=== PATIENT | female | born 1960 | race Caucasian/White ===

== ENCOUNTER 2024-09-29 10:29 | Emergency (ER) | payer OTHER ==
[2024-09-29 10:34] VITALS: TEMP 97.8
[2024-09-29] MEDS: SODIUM CHLORIDE 0.9% 1,000 ML IV STA (10:59)
[2024-09-29] MEDS: ONDANSETRON 4 MG/2 ML VIAL IVP STA (11:00)
[2024-09-29] MEDS: KETOROLAC 15 MG/ML 1 ML VIAL IVP STA (11:01)
[2024-09-29] MEDS: MORPHINE SULFATE 4 MG/ML SYRINGE IVP STA (11:02)
--- NOTE | 2024-09-29 11:06 | ED ---
Female Urogenital HPI - General Chief complaint: Urogenital Stated complaint: abd pain Time Seen by Provider: 09/29/24 10:39 Source: patient, RN notes reviewed Mode of arrival: ambulatory Limitations: no limitations - History of Present Illness Initial comments: This is a 64-year-old female who presents to the emergency department for urinary symptoms and right flank pain. States that it started 3 to 4 days ago. 2 days ago she went to the clinic and was started on ciprofloxacin and Pyridium for a UTI. States that she initially thought she was doing better, however she then started to develop increasing pain with nausea and vomiting. She was adv ised to come here to rule out a kidney stone. Denies any history of kidney stones. - Related Data Home Medications Medication Instructions Recorded Confirmed Budesonide/Formoterol Fumarate 2 puff INHALATION RT-BID 09/29/24 09/29/24 [Symbicort 160-4.5 Mcg Inhaler] Ciprofloxacin HCl [Cipro] 500 mg PO Q12HR 09/29/24 09/29/24 Losartan [Cozaar] 25 mg PO DAILY 09/29/24 09/29/24 Phenazopyridine [Pyridium] 200 mg PO Q8H 09/29/24 09/29/24 metFORMIN HCL 500 mg PO BID 09/29/24 09/29/24 Previous Rx's Medication Instructions Recorded HYDROcodone/APAP 5-325MG [[place] 1 tab PO Q6HR PRN 3 Days #12 tab 09/29/24 5-325] Ketorolac [Toradol] 10 mg PO Q6HR PRN #15 tab 09/29/24 Ondansetron Odt [Zofran Odt] 4 mg PO Q8HR PRN #15 tab 09/29/24 Allergies Allergy/AdvReac Type Severity Reaction Status Date / Time No Known Allergies Allergy Verified 09/29/24 12:31 Review of Systems ROS Statement: Those systems with pertinent positive or pertinent negative responses have been documented in the HPI. ROS Other: All systems not noted in ROS Statement are negative. Past Medical History Past Medical History: Diabetes Mellitus, Hypertension History of Any Multi-Drug Resistant Organisms: None Reported Past Surgical History: No Surgical Hx Reported Past Psychological History: No Psychological Hx Reported Smoking Status: Never smoker Past Alcohol Use History: None Reported Past Drug Use History: None Reported General Exam Limitations: no limitations General appearance: alert, in no apparent distress Head exam: Present: atraumatic, normocephalic, normal inspection Respiratory exam: Present: normal lung sounds bilaterally. Absent: respiratory distress, wheezes, rales, rhonchi, stridor Cardiovascular Exam: Present: regular rate, normal rhythm GI/Abdominal exam: Present: soft, tenderness (RLQ), normal bowel sounds. Absent: distended, guarding, rebound, rigid Back exam: Present: CVA tenderness (R). Absent: CVA tenderness (L) Neurological exam: Present: alert, oriented X3, CN II-XII intact Psychiatric exam: Present: normal affect, normal mood Skin exam: Present: warm, dry, intact, normal color. Absent: rash Course Vital Signs 09/29/24 09/29/24 10:31 12:22 Temperature 97.8 F Pulse Rate 86 70 Respiratory 18 16 Rate Blood Pressure 198/107 151/83 O2 Sat by Pulse 99 99 Oximetry Medical Decision Making - Medical Decision Making This is a 64 year old female who presents to the emergency department for right flank pain. Was pt. sent in by a medical professional or institution? @ -No Did you speak to anyone other than the patient for history? @ -No Did you review nursing and triage notes? @ -Yes, and I agree, it is accurate with regards to the patient's symptoms. Were old charts reviewed? @ -No Differential Diagnosis? @ -Differential Flank Pain: UTI, pyelonephritis, kidney stone, musculoskeletal, pancreatitis, cholecystitis, this is not meant to be an all-inclusive list. EKG interpreted by me (3pts min.)? @ -Not obtained X-rays interpreted by me (1pt min.)? @ -Not obtained CT interpreted by me (1pt min.)? @ -CT scan of the abdomen and pelvis obtained. My interpretation identifies no ureteral calculus. U/S interpreted by me (1pt. min.)? @ -Not obtained What testing was considered but not performed? (CT, X-rays, U/S, labs)? Why? @ -None What meds were considered but not given? Why? @ -None Did you discuss the management of the patient with other professionals? @ -No Did you reconcile home meds? @ -No Was smoking cessation discussed for >3mins.? @ -No Was critical care preformed (if so, how long)? @ -No Were there social determinants of health that impacted care today? How? (Homelessness, low income, unemployed, alcoholism, drug addiction, transportation, low edu. Level, literacy, decrease access to med. care, alf, rehab)? @ -No Was there de-escalation of care discussed even if they declined? (Discuss DNR or withdrawal of care, Hospice)? @ -No What co-morbidities impacted this encounter? (DM, HTN, Smoking, COPD, CAD, Cancer, CVA, Hep., AIDS, mental health diagnosis, sleep apnea, morbid obesity)? @ -None Was patient admitted / discharged? @ -Discharged. Lab work demonstrates mild leukocytosis and is otherwise unremarkable. Urinalysis demonstrates blood and a small elevation in WBCs. Urine sent for culture. CT scan of the abdomen and pelvis demonstrates mild right hydroureteronephrosis without obstructing calculus. There is also perivesicular fat stranding. This may relate to recently passed stone, however cystitis with ascending infection is not excluded. Urinalysis not overly suggestive of infection at this time and blood work is also relatively unremarkable. Symptoms more likely related to recently passed stone. Findings reviewed with the patient. Symptoms treated in the emergency department. Prescription for Toradol, [place], and Zofran provided. Patient discharged home in stable condition and advised to follow-up with her PCP. Case discussed with ED attending Dr. Wayne. Return precautions reviewed in depth, the patient is instructed to return to the emergency department with any new, worsening, or concerning symptoms. Patient verbalized understanding. Undiagnosed new problem with uncertain prognosis? @ -None Drug Therapy requiring intensive monitoring for toxicity (Heparin, Nitro, Insulin, Cardizem)? @ -None Were any procedures done? @ -None Diagnosis/symptom? @ -UTI, hydronephrosis Acute, or Chronic, or Acute on Chronic? @ -Acute Uncomplicated (without systemic symptoms) or Complicated (systemic symptoms)? @ -Uncomplicated Side effects of treatment? @ -None Exacerbation, Progression, or Severe Exacerbation] @ -Not applicable Poses a threat to life or bodily function? @ -No - Lab Data Result diagrams: 09/29/24 10:57 09/29/24 10:57 Lab Results 09/29/24 09/29/24 09/29/24 Range/Units 10:57 10:57 10:57 WBC 10.8 H (3.8-10.6) k/uL RBC 4.83 (3.80-5.40) m/uL Hgb 14.7 (11.4-16.0) gm/dL Hct 43.2 (34.0-46.0) % MCV 89.3 (80.0-100.0) fL MCH 30.4 (25.0-35.0) pg MCHC 34.0 (31.0-37.0) g/dL RDW 12.5 (11.5-15.5) % Plt Count 194 (150-450) k/uL MPV 7.4 Neutrophils % 63 % Lymphocytes % 27 % Monocytes % 7 % Eosinophils % 1 % Basophils % 0 % Neutrophils # 6.8 (1.3-7.7) k/uL Lymphocytes # 2.9 (1.0-4.8) k/uL Monocytes # 0.7 (0-1.0) k/uL Eosinophils # 0.1 (0-0.7) k/uL Basophils # 0.0 (0-0.2) k/uL Sodium 132 L (137-145) mmol/L Potassium 3.7 (3.5-5.1) mmol/L Chloride 96 L (98-107) mmol/L Carbon Dioxide 21 L (22-30) mmol/L Anion Gap 15 mmol/L BUN 19 H (7-17) mg/dL Creatinine 0.71 (0.52-1.04) mg/dL Est GFR (CKD-EPI)AfAm >90 (>60 ml/min/1.73 sqM) Est GFR (CKD-EPI)NonAf >90 (>60 ml/min/1.73 sqM) Glucose 223 H (74-99) mg/dL Plasma Lactic Acid Alvaro (0.7-2.0) mmol/L Calcium 9.6 (8.4-10.2) mg/dL Total Bilirubin 1.8 H (0.2-1.3) mg/dL AST 29 (14-36) U/L ALT 31 (4-34) U/L Alkaline Phosphatase 82 (38-126) U/L Total Protein 7.8 (6.3-8.2) g/dL Albumin 4.8 (3.5-5.0) g/dL Urine Color Dark Brown Urine Appearance Cloudy H (Clear) Urine pH 5.0 (5.0-8.0) Ur Specific [place] 1.009 (1.001-1.035) Urine Protein Trace H (Negative) Urine Glucose (UA) 3+ H (Negative) Urine Ketones Negative (Negative) Urine Blood Moderate H (Negative) Urine Nitrite Negative (Negative) Urine Bilirubin Negative (Negative) Urine Urobilinogen <2.0 (<2.0) mg/dL Ur Leukocyte Esterase Negative (Negative) Urine RBC 8 H (0-5) /hpf Urine WBC 7 H (0-5) /hpf Urine WBC Clumps Rare H (None) /hpf Ur Squamous Epith Cells 1 (0-4) /hpf Urine Mucus Rare H (None) /hpf 09/29/24 Range/Units 10:57 WBC (3.8-10.6) k/uL RBC (3.80-5.40) m/uL Hgb (11.4-16.0) gm/dL Hct (34.0-46.0) % MCV (80.0-100.0) fL MCH (25.0-35.0) pg MCHC (31.0-37.0) g/dL RDW (11.5-15.5) % Plt Count (150-450) k/uL MPV Neutrophils % % Lymphocytes % % Monocytes % % Eosinophils % % Basophils % % Neutrophils # (1.3-7.7) k/uL Lymphocytes # (1.0-4.8) k/uL Monocytes # (0-1.0) k/uL Eosinophils # (0-0.7) k/uL Basophils # (0-0.2) k/uL Sodium (137-145) mmol/L Potassium (3.5-5.1) mmol/L Chloride (98-107) mmol/L Carbon Dioxide (22-30) mmol/L Anion Gap mmol/L BUN (7-17) mg/dL Creatinine (0.52-1.04) mg/dL Est GFR (CKD-EPI)AfAm (>60 ml/min/1.73 sqM) Est GFR (CKD-EPI)NonAf (>60 ml/min/1.73 sqM) Glucose (74-99) mg/dL Plasma Lactic Acid Alvaro 1.7 (0.7-2.0) mmol/L Calcium (8.4-10.2) mg/dL Total Bilirubin (0.2-1.3) mg/dL AST (14-36) U/L ALT (4-34) U/L Alkaline Phosphatase (38-126) U/L Total Protein (6.3-8.2) g/dL Albumin (3.5-5.0) g/dL Urine Color Urine Appearance (Clear) Urine pH (5.0-8.0) Ur Specific [place] (1.001-1.035) Urine Protein (Negative) Urine Glucose (UA) (Negative) Urine Ketones (Negative) Urine Blood (Negative) Urine Nitrite (Negative) Urine Bilirubin (Negative) Urine Urobilinogen (<2.0) mg/dL Ur Leukocyte Esterase (Negative) Urine RBC (0-5) /hpf Urine WBC (0-5) /hpf Urine WBC Clumps (None) /hpf Ur Squamous Epith Cells (0-4) /hpf Urine Mucus (None) /hpf - Radiology Data Radiology results: report reviewed, image reviewed Disposition Clinical Impression: UTI (urinary tract infection), Hydronephrosis Disposition: HOME SELF-CARE Instructions (If sedation given, give patient instructions): Urinary Tract Infection in Women (ED), Hydronephrosis (ED) Additional Instructions: Return to the emergency department with any new, worsening, or concerning symptoms. Take the Toradol with Tylenol as needed for pain relief. If you choose to take the Toradol, do not take any other anti-inflammatories such as ibuprofen, take one or the other. Take the [place] sparingly when your pain is the most severe. Take the Zofran up to every 8 hours as needed for nausea and vomiting. Continue taking the ciprofloxacin as prescribed. Take the Pyridium as needed for burning with urination. Follow up with your primary care provider in 1-2 days. Prescriptions: HYDROcodone/APAP 5-325MG [[place] 5-325] 1 tab PO Q6HR PRN 3 Days #12 tab PRN Reason: Pain Ketorolac [Toradol] 10 mg PO Q6HR PRN #15 tab PRN Reason: Pain Ondansetron Odt [Zofran Odt] 4 mg PO Q8HR PRN #15 tab PRN Reason: Nausea And Vomiting Is patient prescribed a controlled substance at d/c from ED?: Yes When asked, does pt state using other controlled substances?: No If prescribed controlled substance>3 days was MAPS reviewed?: Prescribed <3 Days Referrals: Nonstaff,Physician [Primary Care Provider] - 1-2 days Time of Disposition: 12:17
[2024-09-29 11:10] LABS: Basophils % (A) 0 %; Eosinophils # (A) 0.1 k/uL (0-0.7); Eosinophils % (A) 1 %; HCT 43.2 % (34.0-46.0); HGB 14.7 gm/dL (11.4-16.0); Lymphocytes # (A) 2.9 k/uL (1.0-4.8); Lymphocytes % (A) 27 %; MCH 30.4 pg (25.0-35.0); MCV 89.3 fL (80.0-100.0); Mean Platelet Volume 7.4; Monocytes # (A) 0.7 k/uL (0-1.0); Monocytes % (A) 7 %; Neutrophils # (A) 6.8 k/uL (1.3-7.7); Neutrophils % (A) 63 %; Platelet Count 194 k/uL (150-450); RBC 4.83 m/uL (3.80-5.40); RDW 12.5 % (11.5-15.5); WBC 10.8 k/uL (3.8-10.6)
[2024-09-29 11:18] LABS: Appearance,Urine Cloudy (Clear); Bilirubin,Urine Negative (Negative); Blood,Urine Moderate (Negative); Color,Urine Dark Brown; Glucose,Urine (UA) 3+ (Negative); Ketones,Urine Negative (Negative); Leukocyte Esterase,Urine Negative (Negative); Mucus,Urine Rare /hpf; Nitrite,Urine Negative (Negative); Protein,Urine Trace (Negative); RBC,Urine 8 /hpf (0-5); Specific Gravity,Urine 1.009 (1.001-1.035); Squamous Epithelial Cell,Urine 1 /hpf (0-4); Urobilinogen,Urine <2.0 mg/dL (<2.0); WBC,Urine 7 /hpf (0-5)
[2024-09-29 11:28] LABS: Potassium 3.7 mmol/L (3.5-5.1)
--- NOTE | 2024-09-29 11:40 | CT ---
EXAMINATION TYPE: CT abdomen pelvis wo con CT DLP: 975 mGycm, Automated exposure control for dose reduction was used. DATE OF EXAM: 09/29/2024 11:21 AM COMPARISON: None CLINICAL INDICATION:Female, 64 years old with history of Right flank pain; RIGHT FLANK PAIN TECHNIQUE: Standard CT of the abdomen and pelvis without IV or oral contrast. Lack of IV or oral co ntrast limits evaluation of solid and hollow organ viscera. Coronal and sagittal reformats were perfo rmed. FINDINGS: LOWER CHEST: Aortic valvular calcifications. The visualized lungs are clear. ABDOMEN LIVER: Diffusely hypoattenuating parenchyma. GALLBLADDER AND BILE DUCTS: Cholelithiasis. No surrounding inflammatory changes identified. No biliar y duct dilatation. PANCREAS: Unremarkable noncontrast appearance. SPLEEN: Unremarkable noncontrast appearance. ADRENAL GLANDS: Unremarkable noncontrast appearance.. KIDNEYS AND URETERS: No renal calculi. No left hydronephrosis. Mild right hydroureteronephrosis witho ut obstructing calculus identified. Right periureteral fat stranding. PELVIS BLADDER: Underdistended. No distinct wall thickening. There is some subtle perivesicular fat strandin g. No calculus. REPRODUCTIVE: The uterus is surgically absent. ABDOMEN & PELVIS STOMACH AND BOWEL: No distinct hiatal hernia. Periampullary duodenal diverticulum.Sigmoid diverticulo sis without evidence for acute diverticulitis. No focal wall thickening or surrounding inflammatory c hanges. The appendix is within normal limits. No evidence of bowel obstruction. PERITONEUM: No evidence of pneumoperitoneum or free fluid. VASCULATURE: Mild atherosclerotic calcifications are present throughout the abdominal aorta and its b ranches. No evidence of aortic aneurysm. Couple of left-sided pelvic phleboliths. MUSCULOSKELETAL: No acute osseous abnormalities. Minimal retrolisthesis of L2 on L3. LYMPH NODES: No gross evidence for lymphadenopathy. SOFT TISSUE/ABDOMINAL WALL: Unremarkable IMPRESSION: 1. Mild right hydroureteronephrosis without obstructing calculus identified. Right periureteral and perivesicular fat stranding. May relate to recently passed stone however cystitis with ascending infe ction is not excluded. Correlate with urinalysis. 2. Hepatic steatosis. 3. Sigmoid diverticulosis without evidence for acute diverticulitis. 4. Cholelithiasis. [facility], , 09/29/2024 11:38 AM
[2024-09-29 11:43] LABS: ALT 31 U/L (4-34); AST 29 U/L (14-36); African American GFR (CKD) >90 (>60 ml/min/1.73 sqM); Albumin 4.8 g/dL (3.5-5.0); Alkaline Phosphatase 82 U/L (38-126); Anion Gap 15 mmol/L; Blood Urea Nitrogen 19 mg/dL (7-17); Calcium 9.6 mg/dL (8.4-10.2); Carbon Dioxide 21 mmol/L (22-30); Chloride 96 mmol/L (98-107); Glucose 223 mg/dL (74-99); Non-African American GFR(CKD) >90 (>60 ml/min/1.73 sqM); Sodium 132 mmol/L (137-145); Total Bilirubin 1.8 mg/dL (0.2-1.3); Total Protein 7.8 g/dL (6.3-8.2)
[2024-09-29 12:23] VITALS: BP 151/83; PULSE 70; RESP 16
[2024-09-29] MEDS: cefTRIAXone IN SWFI 1,000 MG/10 ML SYRINGE IVP STA (12:25)
== END 2024-09-29 12:43 | disposition home or self-care (01) ==
LOC: EC 10:29
DX: N39.0 Urinary tract infection, site not specified (principal); N13.30 Unspecified hydronephrosis
CPT/HCPCS: 36415; 80053; 83605; 85025; 81001; 87086; 74176; 99284; 96374; 96375; 96361; J2270; J2405; J0696; J1885